=== PATIENT | female | born 1960 | race Caucasian/White ===

== ENCOUNTER 2017-05-23 07:42 | Emergency (ER) | payer OTHER ==
[~2017-05-23] VITALS: Ht 160 cm; Wt 116.6 kg
[~2017-05-23 07:42] MED LIST: ASPIRIN81 MG PO; ATENOLOL50 MG PO; CRESTOR5 MG PO; GLUCOPHAGE500 MG PO
[2017-05-23] MEDS ORDERED: HYDROCODONE/APAP 10MG-325MG TAB PO ONE (08:00)
== END 2017-05-23 10:00 | disposition home or self-care (01) ==
LOC: ER 07:42
DX: H66.004 Acute suppurative otitis media without spontaneous rupture of ear drum, recurrent, right ear (principal); I10 Essential (primary) hypertension; E11.9 Type 2 diabetes mellitus without complications
CPT/HCPCS: 99283

== ENCOUNTER 2020-11-20 06:11 | Emergency (ER) | payer SELFPAY ==
[~2020-11-20] VITALS: Ht 160 cm; Wt 115.7 kg
[2020-11-20] MEDS ORDERED: SODIUM CHLORIDE 0.9% 1000ML 1,000 ML IV STA (06:36)
[2020-11-20] MEDS ORDERED: KETOROLAC TROMETHAMINE 30 MG/ML VIAL IV STA (06:36)
[2020-11-20] MEDS ORDERED: ONDANSETRON HCL INJ 2MG/ML 2ML 2 MG/ML VIAL IV STA ×2 (06:36→07:47)
[2020-11-20 06:55] LABS: BASOPHILS # (AUTO) 0.1 (0.0-0.1); BASOPHILS % 0.3 % (0.0-1.0); EOSINOPHILS # (AUTO) 0.2 (0.0-0.4); HEMOGLOBIN 13.7 g/dL (12.0-16.0); LYMPHOCYTES # (AUTO) 5.6 (1.0-3.2); LYMPHOCYTES % 38.4 % (18.0-39.1); MEAN CORPUSCULAR HEMOGLOBIN 30.7 pg (28-32); MEAN CORPUSCULAR HGB CONC 33.4 g/dL (31-35); MEAN CORPUSCULAR VOLUME 91.9 fL (81-99); MONOCYTES # (AUTO) 1.1 (0.2-0.8); MONOCYTES % 7.3 % (4.4-11.3); NEUTROPHILS # (AUTO) 7.6 (2.1-6.9); NEUTROPHILS % 52.4 % (38.7-80.0); PLATELET COUNT 356 x10e3/uL (140-360); RED BLOOD COUNT 4.46 x10e6/uL (3.6-5.1); RED CELL DISTRIBUTION WIDTH 14.8 % (11.7-14.4)
[2020-11-20] MEDS ORDERED: LORAZEPAM INJ 2 MG/ML VIAL IV STA (07:14)
[2020-11-20 07:15] LABS: ALBUMIN/GLOBULIN RATIO 1.1 (0.8-2.0); ANION GAP 20.6 mmol/L (8-16); CALCIUM 9.6 mg/dL (8.4-10.2); CREATININE, SERUM 1.08 mg/dL (0.57-1.11); POTASSIUM 3.6 mmol/L (3.5-5.1)
[2020-11-20] MEDS ORDERED: MORPHINE SULFATE INJ 4 MG/ML INJ 1ML IV STA (07:47)
[2020-11-20] MEDS ORDERED: ONDANSETRON ODT4 MG PO (08:51)
[2020-11-20] MEDS ORDERED: HYDROCODON-ACE1 EA11 PO (08:51)
[2020-11-20] MEDS ORDERED: PREDNISONE20 MG PO (08:51)
== END 2020-11-20 10:30 | disposition home or self-care (01) ==
LOC: ER 06:32
DX: M54.31 Sciatica, right side (principal)
CPT/HCPCS: 36415; 73502; 80053; 83690; 85025; 99284; J1885; J2060; J2270; J2405

== ENCOUNTER 2020-12-15 11:41 | Emergency (ER) | payer SELFPAY ==
[~2020-12-15] VITALS: Ht 160 cm; Wt 115.7 kg
[~2020-12-15 11:41] MED LIST changes: +HYDROCODON-ACE1 EA11 PO; +ONDANSETRON ODT4 MG PO; +PREDNISONE20 MG PO
[2020-12-15] MEDS ORDERED: ONDANSETRON HCL INJ 2MG/ML 2ML 2 MG/ML VIAL IV NR (13:03)
[2020-12-15] MEDS ORDERED: SODIUM CHLORIDE 0.9% 1000ML 1,000 ML IV STA (13:03)
[2020-12-15] MEDS ORDERED: MECLIZINE HCL 12.5 MG TAB PO NR (13:15)
[2020-12-15] MEDS ORDERED: KETOROLAC TROMETHAMINE 30 MG/ML VIAL IV NR (13:15)
[2020-12-15 13:45] LABS: BASOPHILS # (AUTO) 0.1 (0.0-0.1); BASOPHILS % 0.3 % (0.0-1.0); EOSINOPHILS # (AUTO) 0.1 (0.0-0.4); EOSINOPHILS % 0.4 % (0.0-6.0); HEMATOCRIT 39.6 % (34.2-44.1); HEMOGLOBIN 13.2 g/dL (12.0-16.0); LYMPHOCYTES # (AUTO) 2.5 (1.0-3.2); LYMPHOCYTES % 14.7 % (18.0-39.1); MEAN CORPUSCULAR HEMOGLOBIN 30.5 pg (28-32); MEAN CORPUSCULAR HGB CONC 33.3 g/dL (31-35); MEAN CORPUSCULAR VOLUME 91.5 fL (81-99); MONOCYTES # (AUTO) 0.9 (0.2-0.8); MONOCYTES % 5.3 % (4.4-11.3); NEUTROPHILS # (AUTO) 13.5 (2.1-6.9); NEUTROPHILS % 78.8 % (38.7-80.0); PLATELET COUNT 357 x10e3/uL (140-360); RED BLOOD COUNT 4.33 x10e6/uL (3.6-5.1); RED CELL DISTRIBUTION WIDTH 14.6 % (11.7-14.4)
[2020-12-15 13:52] LABS: INR 0.88; PROTHROMBIN TIME 12.1 seconds (11.9-14.5)
[2020-12-15 13:53] LABS: PARTIAL THROMBOPLASTIN TIME 24.6 seconds (23.8-35.5)
[2020-12-15 14:04] LABS: ALBUMIN 3.9 g/dL (3.5-5.0); ALBUMIN/GLOBULIN RATIO 1.1 (0.8-2.0); ANION GAP 21.2 mmol/L (8-16); CALCIUM 8.9 mg/dL (8.4-10.2); CREATININE, SERUM 1.81 mg/dL (0.57-1.11); MAGNESIUM 1.6 MG/DL (1.3-2.1); POTASSIUM 3.2 mmol/L (3.5-5.1)
[2020-12-15 14:11] LABS: CREATINE KINASE MB 1.1 ng/mL (0-5.0)
[2020-12-15] MEDS ORDERED: SODIUM CHLORIDE 0.9% 1000ML 1,000 ML ONE (16:53)
[2020-12-15 16:55] LABS: CLARITY,URINE SL CLOUDY (CLEAR); COLOR,URINE YELLOW (YELLOW)
[2020-12-15 16:56] LABS: KETONES,URINE 2+ (NEGATIVE); LEUKOCYTE ESTERASE ,URINE NEGATIVE (NEGATIVE); NITRITE,URINE NEGATIVE (NEGATIVE); PROTEIN,URINE DIPSTICK 1+ (NEGATIVE); URINE UROBILINOGEN 0.2 mg/dL (0.2 - 1)
[2020-12-15 17:12] LABS: BACTERIA,URINE RARE /HPF; EPITHELIAL CELLS,URINE FEW /LPF
[2020-12-15] MEDS ORDERED: HYDROCODONE/APAP 7.5MG-325MG 1 EA TAB PO ONE (18:15)
[2020-12-15 18:58] VITALS: BP 136/71
== END 2020-12-15 18:59 | disposition home or self-care (01) ==
LOC: ER 12:40
DX: R42 Dizziness and giddiness (principal); N39.0 Urinary tract infection, site not specified; E86.0 Dehydration; N28.9 Disorder of kidney and ureter, unspecified
CPT/HCPCS: 36415; 70450; 71045; 80053; 81001; 82550; 82553; 83735; 84484; 85025; 85610; 85730; 87086; 93005; 99284; J7030; U0002

== ENCOUNTER → 2025-02-22 | Outpatient (REF) | payer MEDICARE | LOC: US 09:47 | PROVIDERS: ATTEND Family Medicine | DX: K43.9 Ventral hernia without obstruction or gangrene (principal) | CPT/HCPCS: 76705 ==